=== PATIENT | female | born 1970 | race Caucasian/White ===

== ENCOUNTER 2017-08-18 04:46 | Inpatient (IN) ==
[2017-08-12 08:50] LABS: MANUAL DIFF NEEDED? NO; URINE MICRO REVIEW NEEDED? NO; URINE SOURCE CLEAN CATCH
[2017-08-12 08:53] LABS: BASO% 0.8 % (0.0-0.8); EOS# 0.22 X1000 (0.0-0.7); EOS% 4.3 % (0.0-10.0); HEMATOCRIT 42.6 % (37.0-47.0); LYMPH# 1.65 X1000 (1.2-3.4); MCH 28.3 PG (27-31); MCHC 32.9 g/dL (33-37); MCV 86.1 FL (81-99); MONO# 0.36 X1000 (0.11-0.59); MPV 11.2 FL (7.4-10.4); NEUT% 55.9 % (42.2-75.2); PLT 304 X1000 (130-400); RBC 4.95 XMIL (4.2-5.4)
[2017-08-12 08:57] LABS: BILIRUBIN URINE NEGATIVE (NEGATIVE); BLOOD URINE TRACE (NEGATIVE); COLOR YELLOW; GLUCOSE URINE NEGATIVE (NEGATIVE); LEUKOCYTES URINE NEGATIVE (NEGATIVE); NITRITE URINE NEGATIVE (NEGATIVE); PROTEIN URINE NEGATIVE (NEGATIVE); TURBIDITY URINE CLEAR (CLEAR); UROBILINOGEN URINE NORMAL (NORMAL)
[2017-08-12 09:00] LABS: UR EPITHELIAL CELLS <10 /HPF (<10); URINE BACTERIA NEGATIVE /HPF; URINE RBC <10 /HPF (<10); URINE WBC <10 /HPF (<10)
[2017-08-12 09:05] LABS: INR 1.02; PROTIME 10.7 Seconds (9.2-11.7); PTT 26.7 Seconds (22.0-36.0)
[2017-08-12 09:33] LABS: CALCIUM 9.7 mg/dL (8.8-10.2); POTASSIUM 3.6 mmol/L (3.5-5.1)
--- NOTE | 2017-08-12 09:35 | EKG Report ---
Test Performed on : 08/12/2017 08:18:16 AM Test Reason : JOINT CAMP Blood Pressure : / mmHG Vent. Rate : 071 BPM Atrial Rate : 071 BPM P-R Int : 140 ms QRS Dur : 086 ms QT Int : 392 ms P-R-T Axes : 047 -01 023 degrees QTc Int : 425 ms Normal sinus rhythm. Possible Left atrial enlargement Borderline ECG When compared with ECG of August 27, 2011- No significant change was found Confirmed by Bridger Hernandez MD ([id number]) on 08/12/2017 8:31:18 PM
[2017-08-18] MEDS ORDERED: VERSED ONE ×2 (09:48→11:41)
[2017-08-18] MEDS ORDERED: COLACE ONE (10:45)
[2017-08-18] MEDS ORDERED: LYRICA ONE (10:45)
[2017-08-18] MEDS ORDERED: PEPCID ONE (10:45)
[2017-08-18] MEDS ORDERED: LR 1,000 ML ONE (10:45)
[2017-08-18] MEDS ORDERED: CELEBREX ONE (10:45)
[2017-08-18] MEDS ORDERED: KEFZOL 2 GM/D5W 2 GM/50 ML IVPB ONE (10:45)
[2017-08-18] MEDS ORDERED: REGLAN ONE (10:45)
[2017-08-18] MEDS ORDERED: TRANSDERM-SCOP ONE (11:02)
[2017-08-18] MEDS ORDERED: DIPRIVAN 1% 1,000 MG/100 ML BOTTLE ONE (11:03)
[2017-08-18] MEDS ORDERED: FENTANYL ONE (11:05)
[2017-08-18] MEDS ORDERED: MARCAINE 0.25% PF ONE (11:33)
[2017-08-18] MEDS ORDERED: VANCOMYCIN ONE (11:33)
[2017-08-18] MEDS ORDERED: DURAMORPH ONE (11:33)
[2017-08-18] MEDS ORDERED: TORADOL ONE ×2 (11:33→11:49)
[2017-08-18] MEDS ORDERED: NEOSPORIN G.U. IRRIGANT ONE (11:34)
[2017-08-18] MEDS ORDERED: CYKLOKAPRON 1,000 MG/NS 2,000 MG/200 ML IVPB ONE (11:34)
[2017-08-18] MEDS ORDERED: SODIUM CHLORIDE 0.9% ONE (11:34)
[2017-08-18] MEDS ORDERED: EXPAREL 1.3% ONE (11:34)
[2017-08-18 13:56] LABS: URINE MICRO REVIEW NEEDED? NO; URINE SOURCE CATH
[2017-08-18] MEDS ORDERED: NS 1,000 ML ONE (14:19)
[2017-08-18 14:22] LABS: BILIRUBIN URINE NEGATIVE (NEGATIVE); BLOOD URINE NEGATIVE (NEGATIVE); COLOR YELLOW; GLUCOSE URINE NEGATIVE (NEGATIVE); LEUKOCYTES URINE NEGATIVE (NEGATIVE); NITRITE URINE NEGATIVE (NEGATIVE); PROTEIN URINE NEGATIVE (NEGATIVE); SP GRAVITY URINE 1.019; TURBIDITY URINE CLEAR (CLEAR); UROBILINOGEN URINE NORMAL (NORMAL)
--- NOTE | 2017-08-18 14:22 | Diag Imaging Result Doc PS360 ---
EXAM: KNEE 1-2 VIEWS-RIGHT HISTORY: post op R total knee TECHNIQUE: Two views COMPARISON: None. FINDINGS: There has been recent orthopedic replacement of the right knee. There are anterior skin aranza with a superior surgical drain. No fracture. No dislocation. IMPRESSION: Good alignment to the femoral and tibial components following recent orthopedic replacement of the right knee. Electronically signed by Chai Jay 08/18/2017 2:20 PM
[2017-08-18 14:24] LABS: UR EPITHELIAL CELLS <10 /HPF (<10); URINE BACTERIA NEGATIVE /HPF; URINE RBC <10 /HPF (<10); URINE WBC <10 /HPF (<10)
[2017-08-18] MEDS ORDERED: DILAUDID IV PRN (14:26)
[2017-08-18] MEDS ORDERED: ZOFRAN IV PRN (14:30)
[2017-08-18] MEDS ORDERED: AMBIEN PO PRN (14:30)
[2017-08-18] MEDS ORDERED: OXY IR PO PRN (14:30)
[2017-08-18] MEDS ORDERED: MILK OF MAGNESIA PO PRN (14:30)
[2017-08-18] MEDS: NS 1,000 ML IV SCH (15:19)
[2017-08-18] MEDS: ULTRAM PO SCH ×2 (15:23→20:25)
[2017-08-18] MEDS: TYLENOL PO SCH ×2 (15:23→20:25)
--- NOTE | 2017-08-18 15:38 | OPERATIVE NOTE ---
PROCEDURE DATE: 08/18/2017 PREOPERATIVE DIAGNOSIS: Degenerative joint disease, right knee. POSTOPERATIVE DIAGNOSIS: Degenerative joint disease, right knee. PROCEDURE: Right total knee replacement. SURGEON: Pippa Armas MD. MARINE ENGINEERING TEACHER: TREVOR Lezama. ANESTHESIA: Spinal. COMPLICATION: None. OPERATION IN DETAIL: A 46-year-old female presents for right knee replacement. Risks, benefits, and no guarantees were discussed, and the patient is willing to proceed. She was taken to the operating room and satisfactory anesthesia obtained. The right knee was prepped and draped in usual sterile fashion. A time-out was taken to confirm operative site, procedure, and patient. The leg was wrapped with an Esmarch. Tourniquet inflated to 350 mmHg. A midline incision was made over the front of the knee, followed by a quad tendon sparing arthrotomy. The patella was everted and resurfaced with freehand technique. With the patella subluxed laterally, the knee was flexed and an intramedullary hole made in the distal femur and the distal femoral cutting block secured in 5 degrees of valgus. Femoral resection was made and the femur sized to a size 5 narrow DePuy Attune femoral component. The 4:1 block was secured and the anterior, posterior, and chamfer cuts sequentially made. Care was taken to preserve the PCL and collateral ligaments. Any osteophytes were debrided. The knee was then flexed and a PCL retractor placed behind the tibia to protect the PCL and neurovascular bundle. The tibial cutting block was secured and the tibial resection made. Any osteophytes were debrided about the tibia. Adequate flexion-extension gaps were visualized. The tibia was sized to a size 4 tibial tray. A trial reduction was performed with a size 4 tibial tray, size 5 narrow femoral component, and a 5-mm thick rotating platform trial poly. Good range of motion and stability was noted. The patella was sized to a 35 medialized dome patella which had good tracking on the trial implant. After preparation of all the bony surfaces, the trial implants were removed and the bony surfaces thoroughly irrigated with pulsatile lavage and then dried. Cement with a gram of vancomycin was then used to cement a DePuy Attune size 4 rotating platform tibial baseplate, a size 5 narrow cruciate-retaining femoral component, and a 35 medialized dome patella. After curing of the cement, a 5-mm rotating platform poly was inserted and range of motion assessed with good stability of the patella and midline tracking and good soft tissue balance throughout an arc of motion from 0-120 degrees. Exparel was utilized to inject the joint capsule for pain management and a Hemovac drain placed. The arthrotomy was then closed over the drain with #1 Vicryl in the arthrotomy, 2-0 Vicryl in the subcutaneous, and skin aranza on the skin edges. Sterile dressings completed the closure and the patient was recovered from anesthesia and transferred to the recovery room in stable condition. No intraoperative complications were noted. Instrument count and sponge count was correct at the time of closure. cc: Angelo Armas MD
--- NOTE | 2017-08-18 16:10 | PROGRESS NOTE ---
DATE: 08/18/2017 SUBJECTIVE: Ms. Rider is seen status post total joint replacement of the knee. At the present time, she is afebrile with stable vital signs. She is no complaints. Her spinal is still in effect. There is good capillary refill distally. She is unable to move the lower extremities due to the spinal currently. ASSESSMENT: At the present time, she is stable. cc: Angelo Armas MD
[2017-08-18] MEDS: COLACE PO SCH (20:25)
[2017-08-18] MEDS: CELEBREX PO SCH (20:25)
[2017-08-18] MEDS: LYRICA PO SCH (20:25)
[2017-08-18] MEDS: KEFZOL 1 GM/D5W 1 GM/50 ML IVPB IV SCH (20:26)
[2017-08-19] MEDS: ULTRAM PO SCH ×3 (02:55→13:52)
[2017-08-19] MEDS: TYLENOL PO SCH ×3 (02:55→13:52)
[2017-08-19] MEDS: KEFZOL 1 GM/D5W 1 GM/50 ML IVPB IV SCH (02:56)
[2017-08-19] MEDS: PERIDEX MT SCH ×2 (02:57→09:01)
[2017-08-19] MEDS: NS 1,000 ML IV SCH (02:57)
[2017-08-19] MEDS: NEXIUM PO SCH ×2 (05:52→09:02)
[2017-08-19] MEDS ORDERED: XARELTO PO SCH (06:00)
[2017-08-19 06:15] LABS: HEMATOCRIT 36.7 % (37.0-47.0); HEMOGLOBIN 12.1 g/dL (12.0-16.0)
[2017-08-19 06:59] LABS: AGAP 10; BUN 14 mg/dL (8-22); CALCIUM 8.8 mg/dL (8.8-10.2); CHLORIDE 102 mmol/L (98-107); COSMO 272; POTASSIUM 4.3 mmol/L (3.5-5.1); SODIUM 135 mmol/L (136-145); TCO2 23 mmol/L (25-35)
--- NOTE | 2017-08-19 08:44 | DISCHARGE SUMMARY ---
ADMISSION DATE: 08/18/2017 DISCHARGE DATE: 08/19/2017 ADMITTING DIAGNOSIS: Degenerative joint disease of the right knee. ADDITIONAL DIAGNOSIS: History of asthma. DISCHARGE DIAGNOSES: 1. Degenerative joint disease of the right knee. 2. History of asthma. 3. Acute blood loss anemia. HISTORY AND HOSPITAL COURSE: A 46-year-old female with DJD about the right knee was admitted to the hospital for knee replacement. She underwent knee replacement without complication. Postoperatively, she did have a mild drop in her hematocrit, but remained asymptomatic. At the present time, she is afebrile with stable vital signs. There is no evidence of active bleeding, DVT, or infection. She is mobilizing well and is discharged home today for outpatient followup with a walker. She is to receive home therapy. She is to return roughly 13 days for staple removal. She can return in the interim for any worsening signs or symptoms. CURRENT MEDICATIONS UPON DISCHARGE: Include continuing her home dose of Celebrex 200 mg a day with [place] 10 one every 4 hours as needed for pain, and Xarelto 10 mg daily for DVT prophylaxis. cc: Angelo Armas MD
[2017-08-19] MEDS ORDERED: PEPCID PO SCH (09:00)
[2017-08-19] MEDS: LYRICA PO SCH (09:01)
[2017-08-19] MEDS: CELEBREX PO SCH (09:01)
[2017-08-19] MEDS: COLACE PO SCH (09:02)
[2017-08-19] MEDS ORDERED: FLUZONE QUAD 2017-2018 SYRINGE IM ONE (12:51)
[2017-08-19 13:29] VITALS: BP 129/61
== END 2017-08-19 15:00 | disposition home or self-care (01) ==
LOC: SURHOLD 04:46 → 4N 13:05
PROVIDERS: ADMIT Orthopaedic Surgery Adult Reconstructive Orthopaedic Surgery; ATTEND Orthopaedic Surgery Adult Reconstructive Orthopaedic Surgery